=== PATIENT | female | born 1990 | race Caucasian/White ===

== ENCOUNTER 2021-04-03 06:29 | Emergency (ER) | payer MEDICAID ==
[~2021-04-03] VITALS: Ht 162.6 cm; Wt 83.9 kg
--- NOTE | 2021-04-03 06:48 | NUR ---
pt walked to room 4 c/o eye infection to left eye. Dr. White at bedside for MSE.
[2021-04-03] MEDS ORDERED: LEVO5DRO21 LEFTEYE (06:56)
[2021-04-03 07:02] VITALS: BP 130/69
--- NOTE | 2021-04-03 07:02 | NUR ---
Patient discharged to home in stable condition. Written and verbal after care instructions given. Patient verbalizes understanding of instructions. Stressed follow up or return to ER for worsening s/s. pt ambulated wiht steady gait. denies pain.
== END 2021-04-03 07:04 | disposition home or self-care (01) ==
LOC: ER 06:42
DX: H10.32 Unspecified acute conjunctivitis, left eye (principal)
CPT/HCPCS: A4663

== ENCOUNTER 2021-05-14 19:30 | Emergency (ER) | payer BC, MEDICAID ==
[~2021-05-14] VITALS: Ht 162.6 cm; Wt 81.6 kg
[~2021-05-14 19:30] MED LIST: LEVO5DRO21 LEFTEYE
[2021-05-14] MEDS ORDERED: FAMOTIDINE 20 MG TABLET PO ONE (19:45)
[2021-05-14] MEDS ORDERED: diphenhydrAMINE 25 MG CAP PO ONE ×2 (19:45→20:04)
[2021-05-14] MEDS ORDERED: EPINEPHRINE 1 MG/1 ML AMP SQ ONE (19:45)
[2021-05-14] MEDS ORDERED: predniSONE 10 MG TABLET PO ONE (19:45)
[2021-05-14] MEDS ORDERED: diphenhydrAMINE 25 MG/10 ML UDC ONE (20:03)
[2021-05-14] MEDS ORDERED: EPINEPHRINE 1 MG/1 ML AMP ONE (20:03)
[2021-05-14] MEDS ORDERED: FAMOTIDINE 20 MG TABLET ONE (20:03)
[2021-05-14] MEDS ORDERED: predniSONE 10 MG TABLET ONE (20:04)
[2021-05-14] MEDS ORDERED: ONDANSETRON ODT 4 MG TAB.RAPDIS SL ONE (20:15)
[2021-05-14] MEDS ORDERED: ONDANSETRON ODT 4 MG TAB.RAPDIS ONE (20:17)
[2021-05-14 20:57] LABS: *URINE HCG, QUAL NEG (NEGATIVE)
[2021-05-14] MEDS ORDERED: LORAZEPAM 0.5 MG TABLET PO ONE (21:30)
[2021-05-14] MEDS ORDERED: DIPH25CA83 PO (21:31)
[2021-05-14] MEDS ORDERED: FAMO40TA71 PO (21:31)
[2021-05-14] MEDS ORDERED: PRED20TA PO (21:31)
[2021-05-14 21:37] VITALS: BP 99/59
[2021-05-14] MEDS ORDERED: LORAZEPAM 0.5 MG TABLET ONE (21:37)
--- NOTE | 2021-05-14 21:38 | NUR ---
Patient discharged to home in stable condition. Written and verbal after care instructions given. Patient verbalizes understanding of instructions. Stressed follow up or return to ER for worsening s/s. pt left under own power advised of side effects of medication, friend present sts he will drive and be with pt for the rest of the night
== END 2021-05-14 21:39 | disposition home or self-care (01) ==
LOC: ER 19:31
DX: L50.9 Urticaria, unspecified (principal); F41.9 Anxiety disorder, unspecified
CPT/HCPCS: 84703; 96372; 99284; J0171; J7512; Q0163; A4663; Q0162

== ENCOUNTER 2021-06-24 16:12 | Emergency (ER) | payer MEDICAID ==
[~2021-06-24] VITALS: Ht 162.6 cm; Wt 81.6 kg
[~2021-06-24 16:12] MED LIST changes: +DIPH25CA83 PO; +FAMO40TA71 PO; +PRED20TA PO
--- NOTE | 2021-06-24 16:52 | NUR ---
PT WAS EVALUATED BY DR KINSEY. PT WAS D/C'd TO HOME. D/C INSTRUCTIONS GIVEN TO THE PT.
[2021-06-24 16:54] VITALS: BP 131/83
== END 2021-06-24 16:54 | disposition home or self-care (01) ==
LOC: ER 16:14
DX: S03.42XA Sprain of jaw, left side, initial encounter (principal); X50.9XXA Other and unspecified overexertion or strenuous movements or postures, initial encounter; Y92.89 Other specified places as the place of occurrence of the external cause; R03.0 Elevated blood-pressure reading, without diagnosis of hypertension; R25.3 Fasciculation
CPT/HCPCS: A4663

== ENCOUNTER 2021-10-20 13:27 | Emergency (ER) | payer MEDICAID ==
[~2021-10-20] VITALS: Ht 162.6 cm; Wt 90.7 kg
--- NOTE | 2021-10-20 13:48 | NUR ---
DR FRENCH AT BEDSIDE FOR EVALUATION.
[2021-10-20] MEDS ORDERED: ALBU18HF2 INH (14:38)
--- NOTE | 2021-10-20 15:00 | NUR ---
Patient discharged to home in stable condition. Written and verbal after care instructions given. Patient verbalizes understanding of instructions. Stressed follow up or return to ER for worsening s/s.
[2021-10-20 15:11] VITALS: BP 130/59
== END 2021-10-20 15:12 | disposition home or self-care (01) ==
LOC: ER 13:27
DX: R06.00 Dyspnea, unspecified (principal); Z86.16 Personal history of COVID-19
CPT/HCPCS: 71045; A4663

== ENCOUNTER 2021-11-20 15:29 | Emergency (ER) | payer MEDICAID ==
[~2021-11-20] VITALS: Ht 162.6 cm; Wt 91.6 kg
[~2021-11-20 15:29] MED LIST changes: +ALBU18HF2 INH
[2021-11-20 16:52] VITALS: BP 124/79
--- NOTE | 2021-11-20 16:53 | NUR ---
Pt. d/c to home in stable condition. Right ankle pain alleviated, rated 2/10. No distress noted. D/c instructions were given, pt. verbalized understanding.
== END 2021-11-20 16:45 | disposition home or self-care (01) ==
LOC: ER 15:29
DX: M77.51 Other enthesopathy of right foot and ankle (principal); M25.571 Pain in right ankle and joints of right foot
CPT/HCPCS: 73610; A4663

== ENCOUNTER 2022-01-08 10:28 | Emergency (ER) | payer MEDICAID ==
[~2022-01-08] VITALS: Ht 162.6 cm; Wt 90.7 kg
[2022-01-08] MEDS ORDERED: BENZ-13 PO (11:04)
[2022-01-08 11:28] LABS: *URINE HCG, QUAL NEG (NEGATIVE)
--- NOTE | 2022-01-08 11:34 | NUR ---
Gave pt RX and d/c instructions, pt verbalized understanding.
== END 2022-01-08 11:38 | disposition home or self-care (01) ==
LOC: ER 10:29
DX: R50.9 Fever, unspecified (principal); J06.9 Acute upper respiratory infection, unspecified; B97.89 Other viral agents as the cause of diseases classified elsewhere; Z20.822 Contact with and (suspected) exposure to COVID-19; Z88.6 Allergy status to analgesic agent
CPT/HCPCS: 84703; 86403; 87070; 87400; A4663

== ENCOUNTER → 2022-07-14 | Emergency (ER) | payer MEDICAID ==
[~2022-07-14] VITALS: Ht 162.6 cm; Wt 90.7 kg
[~2022-07-14] MED LIST changes: +BENZ-13 PO
--- NOTE | 2022-07-14 13:15 | NUR ---
AZAM HANSON AT BEDSIDE FOR MSE
[2022-07-14 13:50] VITALS: BP 123/76
== END | disposition home or self-care (01) ==
LOC: ER 13:08
DX: H10.32 Unspecified acute conjunctivitis, left eye (principal); Z88.8 Allergy status to other drugs, medicaments and biological substances; Z79.899 Other long term (current) drug therapy; Z79.2 Long term (current) use of antibiotics
CPT/HCPCS: A4663

== ENCOUNTER 2022-09-25 22:56 | Emergency (ER) | payer MEDICAID ==
[~2022-09-25] VITALS: Ht 162.6 cm; Wt 90.7 kg
[~2022-09-25 22:56] MED LIST changes: +HYDR-3980 PO; +ONDA4TAB5 PO
[2022-09-26 00:04] LABS: *BILIRUBIN,URIN NEGATIVE (NEGATIVE); *BLOOD, URINE 2+ (NEGATIVE); *CLARITY,URINE SLIGHTLY CLOUDY (CLEAR); *COLOR,URINE YELLOW (YELLOW); *KETONES,URINE NEGATIVE (NEGATIVE); *UROBILINOGEN,URINE 0.2 E.U./dl (NORMAL); LEUKOCYTE ESTERASE ,URINE 2+ (NEGATIVE); NITRITE, URINE POSITIVE (NEGATIVE); PH,URINE 5.5 (5.0-8.0); UGLUCOSE NEGATIVE (NEGATIVE)
[2022-09-26 00:16] LABS: *URINE HCG, QUAL POSITIVE (NEGATIVE); BACTERIA,URINE MANY /HPF (NONE SEEN); RBC,URINE 20-50 /HPF (0-3); SQUAMOUS EPITHELIAL CELL,UR MODERATE /HPF (NONE SEEN); WBC,URINE 20-50 /HPF (0-3)
[2022-09-26] MEDS ORDERED: PHEN-704 PO (00:16)
[2022-09-26] MEDS ORDERED: NITR-84 PO (00:16)
[2022-09-26] MEDS ORDERED: CEFTRIAXONE 1 G VIAL ONE (00:23)
[2022-09-26] MEDS ORDERED: NITROFURANTOIN/NITROFURAN MAC 100 MG CAPSULE PO ONE ×2 (00:23→00:30)
[2022-09-26] MEDS ORDERED: LIDOCAINE HCL 1% 20 ML VIAL ONE (00:23)
[2022-09-26] MEDS ORDERED: PHENAZOPYRIDINE HCL 100 MG TABLET ONE (00:24)
[2022-09-26] MEDS ORDERED: PHENAZOPYRIDINE HCL 100 MG TABLET PO ONE (00:30)
[2022-09-26] MEDS ORDERED: CEFTRIAXONE 1 G VIAL IM ONE (00:30)
[2022-09-26 00:41] VITALS: BP 138/65; TEMP 98.9; O2SAT 98
== END 2022-09-26 00:40 | disposition home or self-care (01) ==
LOC: ER 22:58
DX: N30.00 Acute cystitis without hematuria (principal); Z88.8 Allergy status to other drugs, medicaments and biological substances; Z79.2 Long term (current) use of antibiotics; Z79.899 Other long term (current) drug therapy
CPT/HCPCS: 84703; A4663; J0696; J3490

== ENCOUNTER 2022-10-05 21:59 | Emergency (ER) | payer MEDICAID ==
[~2022-10-05] VITALS: Ht 162.6 cm; Wt 95.7 kg
[~2022-10-05 21:59] MED LIST changes: +NITR-84 PO; +PHEN-704 PO
[2022-10-05] MEDS ORDERED: ACETAMINOPHEN ES 500 MG TABLET ONE (22:37)
[2022-10-05] MEDS ORDERED: ACETAMINOPHEN ES 500 MG TABLET PO ONE (22:45)
[2022-10-05 22:48] VITALS: BP 140/74; O2SAT 98
== END 2022-10-05 22:48 | disposition home or self-care (01) ==
LOC: ER 21:59
DX: M25.532 Pain in left wrist (principal); M25.531 Pain in right wrist; M25.572 Pain in left ankle and joints of left foot; M25.571 Pain in right ankle and joints of right foot; Z79.1 Long term (current) use of non-steroidal anti-inflammatories (NSAID); Z79.2 Long term (current) use of antibiotics; Z79.899 Other long term (current) drug therapy
CPT/HCPCS: A4663; A9150

== ENCOUNTER 2023-01-20 22:51 | Emergency (ER) | payer MEDICAID ==
[~2023-01-20] VITALS: Ht 165.1 cm; Wt 90.7 kg
[2023-01-20] MEDS ORDERED: IV NORMAL SALINE 1000 ML BAG IV ONE (23:15)
[2023-01-20] MEDS ORDERED: KETOROLAC TROMETHAMINE 30 MG INJ IVP ONE (23:15)
[2023-01-20] MEDS ORDERED: KETOROLAC TROMETHAMINE 30 MG INJ ONE (23:23)
[2023-01-20 23:26] LABS: BASOPHILS % (AUTO) 0.4 % (0.0-2.0); EOSINOPHILS # (AUTO) 0.4 K/uL (0.0-0.7); EOSINOPHILS % (AUTO) 4.5 % (0.0-7.0); HEMATOCRIT 40.6 % (31.2-41.9); HEMOGLOBIN 13.7 g/dL (10.9-14.3); LYMPHOCYTES # (AUTO) 1.4 K/uL (0.8-4.8); LYMPHOCYTES % (AUTO) 16.2 % (20.5-51.5); MEAN CORPUSCULAR HEMOGLOBIN 30.6 uug (24.7-32.8); MEAN CORPUSCULAR HGB CONC 34 g/dL (32.3-35.6); MEAN CORPUSCULAR VOLUME 90.9 fL (75.5-95.3); MONOCYTES # (AUTO) 0.3 K/uL (0.1-1.30); MONOCYTES % (AUTO) 3.6 % (0.0-11.0); NEUTROPHILS # (AUTO) 6.5 K/uL (1.8-8.9); NEUTROPHILS % (AUTO) 75.3 % (38.5-71.5); PLATELET COUNT (AUTO) 336 K/uL (179-408); RED BLOOD CELL COUNT(AUTO) 4.47 MIL/uL (3.63-4.92); RED CELL DISTRIBUTION WIDTH 14.1 % (12.3-17.7); WHITE BLOOD COUNT (AUTO) 8.6 K/uL (3.8-11.8)
[2023-01-20 23:58] LABS: DIFFERENTIAL COMMENT 1
[2023-01-20 23:59] LABS: CALCIUM 8.9 mg/dL (8.5-10.1); CREATININE 0.8 mg/dL (0.6-1.3); POTASSIUM 3.7 mmol/L (3.5-5.1)
[2023-01-21] LABS: *BILIRUBIN,URIN NEGATIVE (NEGATIVE); *BLOOD, URINE NEGATIVE (NEGATIVE); *CLARITY,URINE CLEAR (CLEAR); *COLOR,URINE YELLOW (YELLOW); *KETONES,URINE NEGATIVE (NEGATIVE); *PROTEIN,URINE NEGATIVE (NEGATIVE); *UROBILINOGEN,URINE 0.2 E.U./dl (NORMAL); LEUKOCYTE ESTERASE ,URINE NEGATIVE (NEGATIVE); NITRITE, URINE NEGATIVE (NEGATIVE); UGLUCOSE NEGATIVE (NEGATIVE)
[2023-01-21] MEDS ORDERED: MORPHINE SULFATE 4 MG/1 ML DISP.SYRIN IV ONE
[2023-01-21] MEDS ORDERED: METOCLOPRAMIDE HCL 10 MG/2 ML VIAL IV ONE
[2023-01-21] MEDS ORDERED: METOCLOPRAMIDE HCL 10 MG/2 ML VIAL ONE (00:01)
[2023-01-21] MEDS ORDERED: MORPHINE SULFATE 4 MG/1 ML DISP.SYRIN ONE (00:01)
[2023-01-21 00:38] LABS: ALBUMIN 3.4 g/dL (3.4-5.0); BILIRUBIN,DIRECT 0.1 mg/dL (0.0-0.2); BILIRUBIN,TOTAL 0.2 mg/dL (0.2-1.0); TOTAL PROTEIN, SERUM 7.4 g/dL (6.4-8.2)
[2023-01-21] MEDS ORDERED: HYDR-3980 PO (04:18)
[2023-01-21 04:36] VITALS: BP 122/87; TEMP 97.5; O2SAT 0
== END 2023-01-21 04:36 | disposition home or self-care (01) ==
LOC: ER 22:52
DX: N23 Unspecified renal colic (principal); E78.00 Pure hypercholesterolemia, unspecified; Z79.899 Other long term (current) drug therapy; Z88.1 Allergy status to other antibiotic agents
CPT/HCPCS: 99285; 74176; 96374; 96361; 80076; 80048; 81003; 83690; 85025; 36415; 96375; J1885; J2765; J2270; J7040; A4606; A4663

== ENCOUNTER 2023-05-06 08:36 | Emergency (ER) | payer MEDICAID ==
[~2023-05-06] VITALS: Ht 162.6 cm; Wt 95.3 kg
[2023-05-06] MEDS ORDERED: METOCLOPRAMIDE HCL 10 MG/2 ML VIAL ONE (08:55)
[2023-05-06] MEDS ORDERED: KETOROLAC TROMETHAMINE 15 MG INJ ONE (08:55)
[2023-05-06] MEDS ORDERED: ONDA4TAB11 PO (09:03)
[2023-05-06] MEDS: IV NORMAL SALINE 1000 ML BAG IV ONE (09:09)
[2023-05-06] MEDS: METOCLOPRAMIDE HCL 10 MG/2 ML VIAL IV ONE (09:09)
[2023-05-06 09:21] LABS: BASOPHILS # (AUTO) 0.2 K/UL (0.0-0.2); BASOPHILS % (AUTO) 1.8 % (0.0-2.0); EOSINOPHILS # (AUTO) 0.1 K/uL (0.0-0.7); EOSINOPHILS % (AUTO) 0.8 % (0.0-7.0); HEMATOCRIT 41.6 % (31.2-41.9); HEMOGLOBIN 14.3 g/dL (10.9-14.3); LYMPHOCYTES # (AUTO) 0.4 K/uL (0.8-4.8); MEAN CORPUSCULAR HEMOGLOBIN 30.2 uug (24.7-32.8); MEAN CORPUSCULAR HGB CONC 34 g/dL (32.3-35.6); MONOCYTES # (AUTO) 0.2 K/uL (0.1-1.30); MONOCYTES % (AUTO) 2.2 % (0.0-11.0); NEUTROPHILS % (AUTO) 91.2 % (38.5-71.5); PLATELET COUNT (AUTO) 317 K/uL (179-408); RED BLOOD CELL COUNT(AUTO) 4.72 MIL/uL (3.63-4.92); RED CELL DISTRIBUTION WIDTH 14.1 % (12.3-17.7); WHITE BLOOD COUNT (AUTO) 8.8 K/uL (3.8-11.8)
[2023-05-06 09:27] LABS: DIFFERENTIAL COMMENT 1
[2023-05-06 09:33] LABS: CALCIUM 8.4 mg/dL (8.5-10.1); CREATININE 0.9 mg/dL (0.6-1.3)
[2023-05-06 09:39] LABS: ALBUMIN 3.5 g/dL (3.4-5.0); BILIRUBIN,DIRECT 0.1 mg/dL (0.0-0.2); BILIRUBIN,TOTAL 0.5 mg/dL (0.2-1.0); TOTAL PROTEIN, SERUM 7.8 g/dL (6.4-8.2)
[2023-05-06] MEDS: KETOROLAC TROMETHAMINE 15 MG INJ IVP ONE (09:56)
[2023-05-06 12:31] LABS: *BILIRUBIN,URIN NEGATIVE (NEGATIVE); *BLOOD, URINE NEGATIVE (NEGATIVE); *CLARITY,URINE CLEAR (CLEAR); *COLOR,URINE YELLOW (YELLOW); *KETONES,URINE NEGATIVE (NEGATIVE); *PROTEIN,URINE NEGATIVE (NEGATIVE); *UROBILINOGEN,URINE 0.2 E.U./dl (NORMAL); LEUKOCYTE ESTERASE ,URINE NEGATIVE (NEGATIVE); NITRITE, URINE NEGATIVE (NEGATIVE); PH,URINE 5.5 (5.0-8.0); UGLUCOSE NEGATIVE (NEGATIVE)
[2023-05-06 13:33] VITALS: BP 128/71; TEMP 98.4; O2SAT 99
== END 2023-05-06 13:34 | disposition home or self-care (01) ==
LOC: ER 08:37
DX: E86.0 Dehydration (principal); R11.2 Nausea with vomiting, unspecified; R10.2 Pelvic and perineal pain; R19.7 Diarrhea, unspecified; E78.00 Pure hypercholesterolemia, unspecified; R10.9 Unspecified abdominal pain; Z79.899 Other long term (current) drug therapy; Z88.1 Allergy status to other antibiotic agents
CPT/HCPCS: 99284; 96374; 96361; 96375; 80076; 80048; 81003; 83690; 85025; 87040 ×2; 84702; 36415; 83605; J1885; J2765; J7040 ×2; A4606; A4663

== ENCOUNTER 2023-10-07 14:14 | Emergency (ER) | payer MEDICAID ==
[~2023-10-07] VITALS: Ht 162.6 cm; Wt 90.7 kg
[~2023-10-07 14:14] MED LIST changes: +ONDA4TAB11 PO
[2023-10-07 14:24] VITALS: O2SAT 0
[2023-10-07 14:45] LABS: *BILIRUBIN,URIN NEGATIVE (NEGATIVE); *BLOOD, URINE NEGATIVE (NEGATIVE); *CLARITY,URINE CLEAR (CLEAR); *COLOR,URINE YELLOW (YELLOW); *KETONES,URINE NEGATIVE (NEGATIVE); *PROTEIN,URINE NEGATIVE (NEGATIVE); *UROBILINOGEN,URINE 0.2 E.U./dl (NORMAL); LEUKOCYTE ESTERASE ,URINE NEGATIVE (NEGATIVE); NITRITE, URINE NEGATIVE (NEGATIVE); PH,URINE 5.5 (5.0-8.0); UGLUCOSE NEGATIVE (NEGATIVE)
[2023-10-07] MEDS ORDERED: METR70GE17 VG (16:33)
[2023-10-09 22:11] LABS: *GC NAA Negative (Negative); *TRIC.VAG. NAA Negative (Negative)
[2023-10-10 13:10] LABS: *CHLAMYDIA NAA Positive (Negative)
== END 2023-10-07 16:40 | disposition home or self-care (01) ==
LOC: ER 14:15
DX: N76.0 Acute vaginitis (principal); E78.00 Pure hypercholesterolemia, unspecified; Z79.1 Long term (current) use of non-steroidal anti-inflammatories (NSAID); Z79.51 Long term (current) use of inhaled steroids; Z79.899 Other long term (current) drug therapy; Z88.8 Allergy status to other drugs, medicaments and biological substances
CPT/HCPCS: 87491; A4606; A4663

== ENCOUNTER 2023-10-16 23:01 | Emergency (ER) | payer MEDICAID ==
[~2023-10-16] VITALS: Ht 162.6 cm; Wt 90.7 kg
[~2023-10-16 23:01] MED LIST changes: +METR70GE17 VG
[2023-10-16 23:36] LABS: *URINE HCG, QUAL NEGATIVE (NEGATIVE)
[2023-10-17] MEDS ORDERED: METR-147 PO (00:56)
[2023-10-17] MEDS: METRONIDAZOLE 500 MG TABLET PO ONE (01:07)
[2023-10-17] MEDS ORDERED: METRONIDAZOLE 500 MG TABLET ONE (01:08)
[2023-10-17 01:12] VITALS: BP 108/76; TEMP 98; O2SAT 99
== END 2023-10-17 01:13 | disposition home or self-care (01) ==
LOC: ER 23:02
DX: S32.2XXA Fracture of coccyx, initial encounter for closed fracture (principal); S70.12XA Contusion of left thigh, initial encounter; N76.0 Acute vaginitis; R10.2 Pelvic and perineal pain; E78.00 Pure hypercholesterolemia, unspecified; Z90.49 Acquired absence of other specified parts of digestive tract; Z79.1 Long term (current) use of non-steroidal anti-inflammatories (NSAID); Z79.52 Long term (current) use of systemic steroids; Z79.899 Other long term (current) drug therapy; Z79.891 Long term (current) use of opiate analgesic; W17.89XA Other fall from one level to another, initial encounter; Y93.89 Activity, other specified; Y92.89 Other specified places as the place of occurrence of the external cause; Y99.8 Other external cause status
CPT/HCPCS: 72170; 72220; 73502; 84703; 87210; A4606; A4663

== ENCOUNTER 2024-05-11 13:32 | Emergency (ER) | payer MEDICAID ==
[~2024-05-11] VITALS: Ht 162.6 cm; Wt 97.5 kg
[~2024-05-11 13:32] MED LIST changes: +METR-147 PO
[2024-05-11] MEDS ORDERED: ACETAMINOPHEN 500 MG TABLET ONE (14:42)
[2024-05-11 14:47] LABS: BASOPHILS % (AUTO) 0.5 % (0.0-2.0); EOSINOPHILS % (AUTO) 0.4 % (0.0-7.0); HEMATOCRIT 43.6 % (31.2-41.9); HEMOGLOBIN 14.8 g/dL (10.9-14.3); LYMPHOCYTES # (AUTO) 1.3 K/uL (0.8-4.8); LYMPHOCYTES % (AUTO) 34.3 % (20.5-51.5); MEAN CORPUSCULAR HEMOGLOBIN 31.1 uug (24.7-32.8); MEAN CORPUSCULAR HGB CONC 34 g/dL (32.3-35.6); MEAN CORPUSCULAR VOLUME 91.7 fL (75.5-95.3); MONOCYTES # (AUTO) 0.3 K/uL (0.1-1.30); MONOCYTES % (AUTO) 7.7 % (0.0-11.0); NEUTROPHILS # (AUTO) 2.1 K/uL (1.8-8.9); NEUTROPHILS % (AUTO) 57.1 % (38.5-71.5); PLATELET COUNT (AUTO) 283 K/uL (179-408); RED BLOOD CELL COUNT(AUTO) 4.75 MIL/uL (3.63-4.92); RED CELL DISTRIBUTION WIDTH 14.2 % (12.3-17.7); WHITE BLOOD COUNT (AUTO) 3.7 K/uL (3.8-11.8)
[2024-05-11] MEDS: IV NORMAL SALINE 1000 ML BAG IV ONE (14:47)
[2024-05-11 14:48] LABS: DIFFERENTIAL COMMENT 1
[2024-05-11] MEDS: ACETAMINOPHEN 500 MG TABLET PO ONE (14:48)
[2024-05-11 14:52] LABS: CALCIUM 8.4 mg/dL (8.5-10.1); CREATININE 0.8 mg/dL (0.6-1.3); POTASSIUM 4.2 mmol/L (3.5-5.1)
[2024-05-11 14:58] LABS: ALBUMIN 3.3 g/dL (3.4-5.0); BILIRUBIN,DIRECT 0.1 mg/dL (0.0-0.2); BILIRUBIN,TOTAL 0.2 mg/dL (0.2-1.0); TOTAL PROTEIN, SERUM 7.7 g/dL (6.4-8.2)
[2024-05-11] MEDS ORDERED: GABAPENTIN 100 MG CAPSULE ONE (15:00)
[2024-05-11] MEDS: GABAPENTIN 100 MG CAPSULE PO ONE (15:03)
[2024-05-11 15:06] LABS: *BILIRUBIN,URIN NEGATIVE (NEGATIVE); *BLOOD, URINE 2+ (NEGATIVE); *CLARITY,URINE CLEAR (CLEAR); *COLOR,URINE YELLOW (YELLOW); *KETONES,URINE NEGATIVE (NEGATIVE); *PROTEIN,URINE NEGATIVE (NEGATIVE); *UROBILINOGEN,URINE 0.2 E.U./dl (NORMAL); LEUKOCYTE ESTERASE ,URINE NEGATIVE (NEGATIVE); NITRITE, URINE NEGATIVE (NEGATIVE); PH,URINE 5.5 (5.0-8.0); UGLUCOSE NEGATIVE (NEGATIVE)
[2024-05-11 15:12] LABS: *URINE HCG, QUAL NEGATIVE (NEGATIVE)
[2024-05-11 15:20] LABS: BACTERIA,URINE FEW /HPF (NONE SEEN); SQUAMOUS EPITHELIAL CELL,UR FEW /HPF (NONE SEEN); WBC,URINE 0-3 /HPF (0-3)
[2024-05-11] MEDS: IV NORMAL SALINE 500 ML BAG IV ONE (15:34)
[2024-05-11] MEDS ORDERED: BUTALB/ACETAMINOPHEN/CAFFEINE CAPSULE ONE (15:38)
[2024-05-11] MEDS: BUTALB/ACETAMINOPHEN/CAFFEINE CAPSULE PO PRN (15:41)
[2024-05-11] MEDS ORDERED: LORA10CA PO (15:49)
[2024-05-11] MEDS ORDERED: GABA100C PO (15:49)
[2024-05-11] MEDS ORDERED: DIPH1TAB PO (15:49)
[2024-05-11] MEDS ORDERED: TRAMADOL HCL 50 MG TABLET ONE (15:51)
[2024-05-11] MEDS: TRAMADOL HCL 50 MG TABLET PO ONE (15:52)
[2024-05-11] MEDS ORDERED: LORATADINE 10 MG TABLET ONE (15:54)
[2024-05-11] MEDS: LORATADINE 10 MG TABLET PO ONE (15:56)
[2024-05-11 17:54] VITALS: BP 128/98; O2SAT 99
== END 2024-05-11 17:55 | disposition home or self-care (01) ==
LOC: ER 13:45
DX: B34.9 Viral infection, unspecified (principal); R05.9 Cough, unspecified; R07.9 Chest pain, unspecified; R19.7 Diarrhea, unspecified; R21 Rash and other nonspecific skin eruption; R51.9 Headache, unspecified; R68.2 Dry mouth, unspecified; E78.00 Pure hypercholesterolemia, unspecified; G25.81 Restless legs syndrome; Z79.52 Long term (current) use of systemic steroids; Z88.6 Allergy status to analgesic agent; Z90.49 Acquired absence of other specified parts of digestive tract; Z20.822 Contact with and (suspected) exposure to COVID-19
CPT/HCPCS: 99284; 96360; 71045; 96361; 87426; 87804 ×2; 80076; 80048; 81001; 84703; 85025; 36415; 83605; J7040 ×2; A4606; A4663; A9150